=== PATIENT | male | born 1950 | race Two or more races ===

== ENCOUNTER 2017-12-21 07:33 | Outpatient (CLI) | payer OTHER ==
[~2017-12-21 07:33] MED LIST: LIPITOR20 MG; SYNTHROID50 MCG
== END 2017-12-21 07:56 | disposition home or self-care (01) ==
LOC: NUCLEAR 07:33
DX: I11.9 Hypertensive heart disease without heart failure (principal)

== ENCOUNTER → 2018-11-16 | Outpatient (CLI) | payer OTHER | END | disposition home or self-care (01) | LOC: NUCLEAR 07:00 | DX: I20.9 Angina pectoris, unspecified (principal) | CPT/HCPCS: 78452; 93017; A9500 ==

== ENCOUNTER 2020-10-12 06:00 | Inpatient (IN) | payer OTHER ==
[~2020-10-12] VITALS: Ht 182.9 cm; Wt 91.6 kg
[~2020-10-12 06:00] MED LIST changes: +ADULT LOW DOSE81 M1 PO; +FINASTERIDE5 MG PO; +PLAVIX75 MG PO; +TAMS0.4C PO; +TOPROL XL100 M1 PO; +VASOTEC5 MG PO
== END 2020-10-13 13:46 | disposition home or self-care (01) | DRG 714 ==
LOC: CIR.AMB 06:00 → O/R 11:25 → SURH 11:25
PROVIDERS: ADMIT Urology; ATTEND Urology
PROC: 0VT08ZZ Resection of Prostate, Via Natural or Artificial Opening Endoscopic (ICD-10-PCS; principal; 2020-10-12 07:00)
DX: N40.1 Benign prostatic hyperplasia with lower urinary tract symptoms (principal); I13.10 Hypertensive heart and chronic kidney disease without heart failure, with stage 1 through stage 4 chronic kidney disease, or unspecified chronic kidney disease; N18.2 Chronic kidney disease, stage 2 (mild); E03.8 Other specified hypothyroidism

== ENCOUNTER 2022-05-30 08:31 | Outpatient (CLI) | payer OTHER | END 2022-05-30 08:33 | disposition home or self-care (01) | LOC: SONOGRAMA 08:31 | PROVIDERS: ATTEND Urology | DX: N40.1 Benign prostatic hyperplasia with lower urinary tract symptoms (principal); R33.9 Retention of urine, unspecified; R31.1 Benign essential microscopic hematuria; I10 Essential (primary) hypertension ==

== ENCOUNTER → 2022-09-18 | Outpatient (CLI) | payer OTHER | END | disposition home or self-care (01) | LOC: RAD 16:18 | PROVIDERS: ATTEND Physical Medicine & Rehabilitation | DX: M47.812 Spondylosis without myelopathy or radiculopathy, cervical region (principal); M19.012 Primary osteoarthritis, left shoulder ==

== ENCOUNTER 2023-07-29 09:09 | Outpatient (CLI) | payer OTHER | END 2023-07-29 09:17 | disposition home or self-care (01) | LOC: SONOGRAMA 09:09 | PROVIDERS: ATTEND Specialist | DX: N20.0 Calculus of kidney (principal); N18.9 Chronic kidney disease, unspecified ==

== ENCOUNTER 2024-03-29 08:50 | Outpatient (CLI) | payer OTHER | END 2024-03-29 09:05 | disposition home or self-care (01) | LOC: SONOGRAMA 08:50 | PROVIDERS: ATTEND Internal Medicine Geriatric Medicine | DX: M75.52 Bursitis of left shoulder (principal); M75.02 Adhesive capsulitis of left shoulder; M75.102 Unspecified rotator cuff tear or rupture of left shoulder, not specified as traumatic ==

== ENCOUNTER 2025-02-14 09:18 | Outpatient (CLI) | payer OTHER | END 2025-02-14 09:26 | disposition home or self-care (01) | LOC: MRI 09:18 | PROVIDERS: ATTEND Physical Medicine & Rehabilitation | DX: M25.561 Pain in right knee (principal) | CPT/HCPCS: 73721 ==